=== PATIENT | female | born 1975 | race Caucasian/White ===

== ENCOUNTER 2024-02-16 05:40 | Day surgery (SDC) | payer OTHER, SELFPAY ==
[2024-02-16 14:10] VITALS: BP 163/85
[2024-02-16 14:14] VITALS: BMI 37.4
[2024-02-16] MEDS: AFRIN NASAL SPRAY 2 SPRAYS NASAL (14:30)
[2024-02-16 14:39] LABS: Glucose - Point of Care 188 mg/dl (70-99)
[2024-02-16] MEDS: NORMOSOL-R 1000 IV (14:43)
[2024-02-16 15:42] VITALS: BP 125/77
[2024-02-16 15:45] VITALS: BP 124/80
[2024-02-16 16:00] VITALS: BP 129/82
== END 2024-02-16 16:28 | disposition home or self-care (01) ==
LOC: GI 05:40
PROVIDERS: ATTENDING PHYSICIAN Otolaryngology Facial Plastic Surgery
DX: G47.30 Sleep apnea, unspecified (principal)
CPT/HCPCS: 42975; 82962

== ENCOUNTER 2025-01-01 18:25 | Emergency (ER) | payer OTHER, SELFPAY ==
[2025-01-01 18:29] VITALS: BP 142/81
[2025-01-01 19:33] LABS: Urine Albumin 3+ (Neg - Trace); Urine Bilirubin Negative (Negative); Urine Character Cloudy (Clear); Urine Color Yellow; Urine Glucose 4+ (Negative); Urine Ketone Negative (Negative); Urine Leukocyte 3+ (Negative); Urine Nitrite Negative (Negative); Urine Occult Blood 4+ (Negative); Urine Urobilinogen Negative (Neg - 1+)
[2025-01-01 19:43] LABS: Urine Red Blood Cell 30-40 /HPF (0-2); Urine White Cell >100 /HPF (0-5)
[2025-01-01 19:44] LABS: Urine Bacteria Few (Negative); Urine Squamous Cell 0-2 /LPF (Few)
[2025-01-01 20:43] VITALS: BP 124/75
[2025-01-01 20:46] VITALS: BMI 34.0
[2025-01-01 21:00] VITALS: BP 127/65
[2025-01-01 21:06] LABS: Glucose - Point of Care 176 mg/dl (70-99)
--- NOTE | 2025-01-01 21:30 | ED.GENMED ---
History of Present Illness
General
Chief Complaint: Urinary Symptoms
Source: patient and other (Friend at bedside)
Exam Limitations: none
Time Seen by Provider: 01/01/25 20:32
History of Present Illness
History of Present Illness:
49-year-old female presents with dysuria, urinary frequency given hesitancy. Patient states that she had bladder surgery 8 days ago. 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 She is a diabetic and they have been watching her
sugars because he been trying to start certain medications. Patient denies vomiting or back pain. She feels like the dysuria though is more than just a UTI. She has had frequent UTIs in the past. Friend states that she has been in and out of the
hospital due to multiple medical issues. Of note, she also had a catheter and that was pulled out a few days ago.
Past History
Past History
ED Past Medical History: Asthma, GERD, HTN, Hypercholesterolemia, IDDM and Other (neuropathy, frequent UTI's, anxiety, depression)
ED Past Surgical History: Cholecystectomy and Orthopedic
Phy Exam
Physical Exam
Physical Exam:
CONSTITUTIONAL Vital signs reviewed, Patient alert and oriented to person, place and time. Well-appearing
HEAD atraumatic, normocephalic.
EYES eyelids normal to inspection, Extraocular muscles intact, Conjunctiva normal, Sclera normal.
NECK normal range of motion, Trachea midline, no jugular venous distention.
RESP no respiratory distress
BACK No obvious deformities
Abdomen no distention, minimal suprapubic tenderness
UPPER EXTREMITY Gross Range of motion normal, gross motor strength normal
LOWER EXTREMITY Gross range of motion normal, Gross motor strength normal. Left BKA noted
NEURO Speech normal, No focal motor deficits include, [place] coma scale 15, Memory normal, Cranial Nerves intact to screening exam.
SKIN Skin warm, dry, and normal in color.
PSYCHIATRIC Patient oriented to person place and time, Normal affect.
Course
Orders/Labs/Results
Orders:
Orders
01/01/25 19:16
UA Reflex to Culture [Urinalysis Reflex To Culture] Urgent
Date Specimen was Collected: 01/01/25
Time Specimen was Collected: 19:05
Urine Microscopic Reflex Cult Urgent
Urine Culture Urgent
TERESA Source: U
Specimen Description:
Date Specimen was Collected: 01/01/25
Time Specimen was Collected: 19:05
01/01/25 20:34
Bedside Glucose- Treatment ONCE
01/01/25 21:29
LevoFLOXacin [Levaquin] 500 mg PO NOW STA
Abnormal Lab Results
01/01/25 01/01/25
19:16 21:04
Ur Occult Blood Reflex 4+ A
(Negative)
Leukocyte Esterase Rfl 3+ A
(Negative)
Urine RBC 30-40 A /HPF
(0-2)
Urine WBC (Reflex) >100 A /HPF
(0-5)
Urine Bacteria (Reflex) Few A
(Negative)
Urine Glucose 4+ A
(Negative)
Urine Albumin (Reflex) 3+ A
(Neg - Trace)
POC Glucose 176 H mg/dl
(70-99)
Vital Signs
Initial and Last Documented VS:
Initial Vital Signs
Temp Pulse Resp BP Pulse Ox
98.5 F 101 16 142/81 98
01/01/25 18:29 01/01/25 18:29 01/01/25 18:29 01/01/25 18:29 01/01/25 18:29
Last Documented Vital Signs
Temp Pulse Resp BP Pulse Ox
98.5 F 96 16 124/75 96
01/01/25 18:29 01/01/25 20:49 01/01/25 20:49 01/01/25 20:43 01/01/25 20:45
MDM/Problems Addressed
Differential Diagnosis Includes:
UTI, bleeding, ureteral irritation from recent surgery
MDM/Problems Addressed:
Urinary tract infection, dysuria, urinary frequency
Chronic conditions affecting care: DM
*Pulse Oximetry
Patient hypoxic: no
*Critical Care Note
Total Time (30-74mins, 75-104mins- exclusive of procedures): Not Applicable
Data Reviewed
Review of Other/Old Records Reveals: Other (Previous cultures reviewed. Blood cultures were negative in the past)
Source: patient and family
Prescriptions/Medications Considered But Not Given:
Consider cephalosporins patient reports allergy
Patient Management
Escalation/DeEscalation of care consider admission/obs:
Patient presents with dysuria and urinary frequency. She is unable to take Azo. For now treat with antibiotics and have her follow-up with her urologist. Patient appears well blood sugar reasonable. Okay for discharge. Cover with Levaquin.
Patient states she has tolerated this well in the past
ED Attending Note
-
Portions of this chart may have been created with voice recognition software.� Occasional wrong word or��sound alike� substitutions may have occurred due to the inherent limitations of voice recognition software.
Discharge Plan
Departure
Patient Disposition: Home (Routine Discharge)
Date of Disposition: 01/01/25
Time of Disposition: 21:37
Patient with high blood pressure during this ER visit?: No
Discharge Problem:
UTI (urinary tract infection)
Instructions: Urinary Tract Infection, Adult (DC)
Prescriptions:
New
levofloxacin 500 mg tablet
500 mg PO DAILY 7 Days Qty: 7 0RF
Referrals:
Damian Hayes DO [Family Provider] -
Activity Restrictions/Additional Instructions:
Please see or call your urologist tomorrow for follow-up and reevaluation. Return immediately for worsening symptoms, vomiting, difficulty urinating, blood in urine or any other concerns.
Interventions
Interventions:
*Risk Screen - Suicide Last Done: 01/01/25 18:29
*General Assessment Last Done: 01/01/25 20:46
*Neglect/Abuse Screening Last Done: 01/01/25 18:29
ED- Fall Risk Assessment Last Done: 01/01/25 20:46
*ED COVID-19 Vaccine History Last Done: 01/01/25 20:46
ED-Female Genitourinary Assessment Last Done: 01/01/25 20:46
Discharge Date and Time
Print Language: SRI LANKAN
[2025-01-01 22:00] VITALS: BP 136/80
[2025-01-01] MEDS: LEVAQUIN 500 MG PO (22:00)
== END 2025-01-01 22:03 | disposition home or self-care (01) ==
LOC: EMR 18:25
PROVIDERS: Emergency Medicine; EMERGENCY PHYSICIAN Emergency Medicine; FAMILY PHYSICIAN Internal Medicine
DX: N39.0 Urinary tract infection, site not specified (principal); J45.909 Unspecified asthma, uncomplicated; K21.9 Gastro-esophageal reflux disease without esophagitis; I10 Essential (primary) hypertension; E78.00 Pure hypercholesterolemia, unspecified; E11.9 Type 2 diabetes mellitus without complications; G62.9 Polyneuropathy, unspecified; Z87.440 Personal history of urinary (tract) infections; Z90.49 Acquired absence of other specified parts of digestive tract
CPT/HCPCS: 99282; 81003; 81015; 82962; 87086